=== PATIENT | female | born 1995 | race Hispanic/Latino ===

== ENCOUNTER 2016-09-17 20:19 | Emergency (ER) | payer OTHER ==
[~2016-09-17] VITALS: Ht 160 cm; Wt 61.3 kg
[2016-09-17 20:29] VITALS: BP 109/90; PULSE 74; RESP 16; O2SAT 99
[2016-09-17 20:58] LABS: APPEARANCE,URINE CLEAR (CLEAR,HAZY); COLOR,URINE DARK YELLOW (YELLOW); OCCULT BLOOD,URINE NEGATIVE (NEGATIVE); UROBILINOGEN,URINE 2 mg/dL (NORMAL)
--- NOTE | 2016-09-17 21:28 | ED.REPORT ---
HPI-Abd Pain F Under 40 Date of Service Sep 17, 2016 ED Provider: Tr Valdivia MD Pt is a 20 year old female presenting to the ED from complaining of sharp, burning upper middle abdominal pain onset 3 days ago. Associated symptoms include nausea, vomiting and diarrhea onset yesterday. The nausea is exacerbated by eating. She reports that her last menstrual period was 1 month ago. Denies vaginal bleeding, dysuria, or any other symptoms at this time. She found out at the clinic today that she is about 6 weeks . Nursing Notes Stated Complaint: STOMACHE PAIN,SENT BY URGENT CARE Chief Complaint: Female Abdominal Pain Nursing Notes Reviewed: Yes Allergies: Coded Allergies: No Known Allergies (Unverified , 09/17/16) Scheduled Famotidine (Pepcid) 20 Mg Tablet 20 MG PO BID General Time Seen by MD: 21:25 Chief Complaint Abdominal pain Hx Obtained From: Patient Arrived By: Walk-in Sudden in Onset?: No Onset Occurred: 3 days ago Context of Onset: Eating Symptom Duration: Since onset Progression since Onset: Constant Location: : Abdomen upper Quality: Burning, Painful, Sharp Severity: Current: Moderate Severity: Maximum: Moderate Recent Healthcare: No recent hospitalization, Recent doctor visit Similar Sx Previous: No Risk Factors Ectopic Risk Stratification No Current IUD, No History of Infertility, No Prior Ectopic, No Tubal Ligation Risk factors reviewed, No risk factors Past Medical History Past Medical History healthy Past Surgical History denies Smoking History Unknown if Ever Smoker Ambulatory Status Independent Review of Systems GI: Reports: Abdominal pain, Diarrhea, Nausea, Vomiting Female: Reports: , Denies: Dysuria, Vaginal bleeding - abnl Complete sys rev & neg: except as marked. Physical Exam Initial Vital Signs Vital Signs (First) Date Time Temp Pulse Resp B/P Pulse Ox O2 Delivery O2 Flow Rate FiO2 09/17/16 20:29 36.4 74 16 109/90 99 Room Air Initial VS: Reviewed Head / Eyes: Atraumatic, Normocephalic, PERRL ENT: Mucous membranes moist, Conjunctiva normal, No scleral icterus Extremities: Vascular intact, Neuro intact, No swelling, No tenderness Skin: Warm, Dry, No cyanosis Neurologic: Alert, Oriented, Nonfocal Psychiatric: Mood/affect normal, Behavior normal, Normal thought content General/Constitutional: Awake, Alert, No acute distress, Well appearing Respiratory / Chest: No respiratory distress Abdomen: Atraumatic, Soft, No guarding, No rebound, BS normoactive Mid epigastric tenderness. No hepatomegaly. Back: Atraumatic, Inspection NL, Full range of motion, No CVA tenderness Interpretation & Diagnostics Lab Results Interpretation Result Diagram: 09/17/16 2100 09/17/16 2100 Test 09/17/16 20:45 09/17/16 21:00 Urine Color Dark yellow (YELLOW) Urine Appearance Clear (CLEAR,HAZY) Urine pH 6.0 (5.0-8.0) Urine Specific [place] 1.020 (1.003-1.035) Urine Protein Negativemg/dL (NEG,TRACE) Urine Glucose (UA) Negativemg/dL (NEGATIVE) Urine Ketones >80mg/dL (NEGATIVE) Urine Occult Blood Negative (NEGATIVE) Urine Nitrite Negative (NEGATIVE) Urine Bilirubin Negative (NEGATIVE) Urine Urobilinogen 2mg/dL (NORMAL) Urine Leukocyte Esterase Negative (NEGATIVE) Urine RBC 0-2/hpf (0-2) Urine WBC 0-5/hpf (0-5) Urine Epithelial Cells Moderate/hpf (NONE-MOD) Urine Crystals None seen (NONE SEEN) Urine Bacteria Few/hpf (NONE-FEW) Urine Hyaline Casts None/lpf (NONE) Urine Granular Casts None seen (NONE SEEN) Urine Waxy Casts None seen (NONE SEEN) Urine Red Blood Cell Casts None seen (NONE SEEN) Urine White Blood Cell Casts None seen (NONE SEEN) Urine Mucus Present (None Seen) Urine Trichomonas None seen (NONE SEEN) Urine Yeast None (NONE SEEN) Urinalysis Comment None Urine Culture Reflexed Not indicated White Blood Count 10.0th/mm3 (3.8-10.1) Red Blood Count 4.62mil/mm3 (3.90-5.20) Hemoglobin 14.0g/dL (12.0-15.6) Hematocrit 40.1% (35.0-46.0) Mean Corpuscular Volume 86.8fL (81-100) Mean Corpuscular Hemoglobin 30.3pg (27.0-35.0) Mean Corpuscular Hemoglobin Concent 34.9% (32.0-37.0) Red Cell Distribution Width 12.4% (12.3-15.4) Platelet Count 206bil/L (150-400) Neutrophils (%) (Auto) 78.8% (40-74) Lymphocytes (%) (Auto) 12.6% (14-46) Monocytes (%) (Auto) 7.7% (4-12) Eosinophils (%) (Auto) 0.4% (0-5) Basophils (%) (Auto) 0.3% (0-3) Sodium Level 138mEq/L (134-144) Potassium Level 3.8mEq/L (3.5-5.2) Chloride Level 99mEq/L (97-108) Carbon Dioxide Level 21mmol/L (18-29) Blood Urea Nitrogen 10mg/dL (6-20) Creatinine 0.60mg/dL (0.57-1.00) Estimat Glomerular Filtration Rate 183mL/min (>59) Glucose Level 102mg/dL (60-99) Calcium Level 9.6mg/dL (8.5-10.1) Magnesium Level 2.0mg/dL (1.6-2.6) Total Bilirubin 0.8mg/dL (0.0-1.2) Aspartate Amino Transf (AST/SGOT) 12U/L (0-50) Alanine Aminotransferase (ALT/SGPT) 14U/L (0-32) Alkaline Phosphatase 51U/L (25-150) Total Protein 7.6g/dL (6.4-8.4) Albumin 4.3g/dL (3.4-5.0) Lipase 15U/L (13-60) HCG Beta Subunit [id number]/mL Hold Tee Top Tube Received (Received) US Focused OB IMPRESSION: Single live intrauterine gestation with an EGA of 6 weeks 4 days. size is greater than LMP dates by 2 weeks. Second echogenic structure in the gestational sac without cardiac activity, could represent a nonviable second embryo, small hematoma bulging into the gestational sac or a mass. Attention on followup imaging. Complex thick walled left ovarian cyst, possibly a hemorrhagic corpus luteum. Gallbladder sludge. This report was transmitted to the emergency room at 09/17/2016 - 11:26:28 PM PDT. Exam Performed by: Radiologist Exam Interpreted by: Radiologist Re-Eval/Medical Decision Re-Evaluation/Progress #1: Time of Eval: 21:48 Patient Status: Condition improved Re-Evaluation/Progress Note: Ultrasound in the room. Re-Evaluation/Progress #2: Time of Eval: 23:00 Patient Status: Condition improved Re-Evaluation/Progress Note: Discussed possible risk of defects associated with Ondansetron and that she not use it regularly. Pt requested that we provide it. Re-Evaluation/Progress #3: Time of Eval: 23:42 Patient Status: Condition improved Re-Evaluation/Progress Note: Discussed ultrasound findings and plan for discharge and follow up. Pt understands and agrees. Consultation : Referral / Consult Name: Martin Ahuja MD Call Returned at: 23:40 Bezel Cutter: Will see patient, Will see in office, Agrees with plan Note: OB. Discussed ultrasound findings with Dr. Ahuja. Pt will follow up in his office in the morning. Counseled Regarding: Diagnosis, Lab results, Need for follow-up, When/why to return to ED Discharge & Departure Primary Impression: Epigastric abdominal pain Additional Impression: Weeks of gestation: less than 8 weeks Qualified Code: Z3A.01 - Less than 8 weeks gestation of Disposition: Home Discharge Condition All VS Reviewed: Yes Condition: Improved Patient Instructions: Gastritis (ED) Additional Instructions: Emergency Department evaluation included interview, examination labs and ultrasound. Examination and labs are reassuring. Ultrasound demonstrates a 6 week 4 day live intrauterine . There is also a second structure in the uterus, it is unclear what this is. Because of this we would like you to follow-up with gynecology. Call to see Dr Ahuja Soon. May use ondansetron one every 8 hours as needed for nausea. Take Pepcid AC one twice daily. May use acetaminophen as needed for pain, do not use ibuprofen or naproxen as this may irritate your stomach. Return to emergency department for vaginal bleeding or severe lower abdominal cramping, fevers or uncontrolled vomiting. Referrals: Martin Ahuja MD Attestation Portions of this note were transcribed by Radha Arevalo. I, Dr. Valdivia personally performed the history, physical exam and medical decision-making; I reviewed and confirmed the accuracy of the information in the transcribed note. Signed by : Chaparrita Nicolas, 09/17/2016 at 0000. copies to: Martin Ahuja MD, Donald L MD Sep 17, 2016 21:28 RADHA AREVALO Sep 17, 2016 21:47
[2016-09-17 21:32] LABS: BASOPHILS % (AUTO) 0.3 % (0-3); EOSINOPHILS % (AUTO) 0.4 % (0-5); MONOCYTES % (AUTO) 7.7 % (4-12); Mean Corpuscular Hemoglobin 30.3 pg (27.0-35.0); Mean Corpuscular Volume 86.8 fL (81-100); NEUTROPHILS % (AUTO) 78.8 % (40-74); Platelet Count 206 bil/L (150-400)
[2016-09-17] MEDS ORDERED: _Ondansetron ODT 4 mg Tablet PO PRN (23:00)
[2016-09-17 23:21] VITALS: BP 108/52; PULSE 83; RESP 18; O2SAT 99
[2016-09-17] MEDS ORDERED: FAMO20T PO (23:48)
[2016-09-18 00:02] VITALS: BP 108/52; PULSE 83; RESP 18; O2SAT 99
--- NOTE | 2016-09-18 07:41 | DRSVH ---
+/- 7 days from 14 weeks to 15 weeks 6 days gestation, +/- 10 days from 16 weeks to 21 weeks 6 days g estation, +/- 2 weeks from 22 weeks to 27 weeks 6 days gestation, +/- 3 weeks for 28 weeks gestation or later. PROCEDURE: US OB<14 WKS+OB TRANSVAG INDICATIONS: abd pain in OUTSIDE/PRIOR DATING DATA: Last menstrual period (LMP): 08/16/16. LMP-based estimated date of delivery (ZEKE): 05/23/17. TECHNIQUE: Real-time scanning was performed of the fetus and maternal pelvic organs, with image documentation. Endovaginal scanning was also performed to better visualize the fetus and maternal ovaries. COMPARISON: None available. FINDINGS: Embryo: OB-ENAMEL DIPPER Ultrasound Procedure Report Early Gestation [facility] Rump Length: 7.10 mm Gestational Age (CRL): 6 weeks, 4 days Summary Fetus Summary Heart Rate: 131 bpm Comments: A normal yolk sac is noted. No perigestational bleeds. Measurement variability in dating: +/- 4 weeks by LMP, +/- 7 days by mean sac diameter (use before 6 weeks gestation if crown-rump length not able to be measured), +/- 5 days by crown-rump length (up t o 8 weeks 6 days gestation), +/- 7 days by crown-rump length (from 9 weeks to 13 weeks 6 days gestati on). Maternal organs: There is a 58 hypoechoic left ovarian mass which contains a small nodular area of increased echogenic ity. The right ovary is normal on ultrasound. Gallbladder sludge. IMPRESSION: 1. Single viable intrauterine gestation with an estimated age of 6 weeks and 4 days. This is larger t duarte expected compared with the last menstrual period (estimated gestational age via the last menstrua l period is 4 weeks and 5 days). 2. There is a left ovarian mass which may represent an ectopic or a benign predominantly cy stic mass with peripheral solid component. Concurrent intrauterine and ectopic pregnancies are very r are. Please correlate with clinical exam and beta-hCG levels. 3. Gallbladder sludge. Dictated by: Gómez Talley M.D. on 09/18/2016 at 7:25 Approved by: Gómez Talley M.D. on 09/18/2016 at 7:34
== END 2016-09-18 00:02 | disposition home or self-care (01) ==
LOC: SED 20:19
DX: O99.89 Other specified diseases and conditions complicating pregnancy, childbirth and the puerperium (principal); R10.13 Epigastric pain; Z3A.01 Less than 8 weeks gestation of pregnancy